=== PATIENT | female | born 1940 | race African-American/Black ===

== ENCOUNTER 2020-07-15 12:08 | Emergency (ER) | payer OTHER, BC ==
[2020-07-15 13:14] VITALS: TEMP 99; BMI 21.3
[2020-07-15 13:18] LABS: BASO % 4.8 % (0-2.0); EOS % 1.2 % (0-4.5); HEMATOCRIT 35.5 % (32.4-45.2); HEMOGLOBIN 11.7 GM/dl (10.7-15.3); LYMPH % 28.3 % (8-40); MCH 29.4 pg (25.7-33.7); MCHC 32.9 g/dl (32.0-36.0); MEAN CELL VOLUME 89.3 fl (80-96); MEAN PLT VOLUME 9.2 fl (7.5-11.1); MONO % 5.8 % (3.8-10.2); NEUT % 59.9 % (42.8-82.8); PLATELET COUNT 247 K/MM3 (134-434); RBC 3.97 M/mm3 (3.60-5.2); RDW 13.6 % (11.6-15.6); WHITE BLOOD COUNT 5.5 K/mm3 (4.0-10.8)
[2020-07-15 13:32] LABS: ALBUMIN 4.3 g/dl (3.4-5.0); BILIRUBIN,TOTAL 1.3 mg/dl (0.2-1); CALCIUM 9.7 mg/dl (8.5-10); TOT PROT 7.1 g/dl (6.4-8.2)
[2020-07-15 14:07] LABS: EPITHELIAL CELLS FEW /hpf
[2020-07-15] MEDS ORDERED: SODIUM CHLORIDE 0.9% 500 ML INFUS.BAG IV ONE (14:16)
[2020-07-15] MEDS ORDERED: ACETAMINOPHEN 500 MG TABLET (FP) PO ONE (15:29)
[2020-07-15] MEDS ORDERED: ACETAMINOPHEN 500 MG TABLET (FP) ONE (15:30)
[2020-07-15 15:43] VITALS: BP 117/62; PULSE 102
== END 2020-07-15 15:45 | disposition home or self-care (01) ==
LOC: FER 12:08
DX: M25.511 Pain in right shoulder (principal); M25.512 Pain in left shoulder
CPT/HCPCS: 36415; 71046-TC-FY; 80053; 81003; 81015; 82550; 84443; 84484; 85025; 93005; 99284-25